=== PATIENT | female | born 1990 | race Two or more races ===

== ENCOUNTER 2018-04-08 20:27 | Emergency (ER) | payer OTHER ==
[2018-04-08 20:34] VITALS: BP 146/98; PULSE 78; TEMP 97.9; BMI 21.7
--- NOTE | 2018-04-08 20:51 | PDOC ---
History of Present Illness - General History Source: Patient Exam Limitations: No Limitations <Lara Rodriguez - Last Filed: 04/08/18 21:09> <Cindy Trejo - Last Filed: 04/09/18 01:57> - General Chief Complaint: Palpitations Stated Complaint: PALPITATIONS Time Seen by Provider: 04/08/18 20:30 - History of Present Illness Initial Comments: 04/08/18 20:56 The patient is 27 year old female with no significant past medical history presenting with headache, palpitations, visions changes, and left arm numbness today. Patient states she had a headache this morning, but states it felt like her typical headache that she gets whenever the weather changes. Patient reports taking medication and has since resolved her headache. Patient later noticed sudden onset palpitations followed by vision changes. She subsequently pulled over and also notes she was having left arm pain/numbness. She reports having similar left arm numbness last week, that resolved on its own after a couple of minutes. Denies history of sudden cardiac in her family. Denies history of stroke in her family. Patient denies any recent illnesses. The patient denies chest pain, shortness of breath, headache and dizziness. Denies fever, chills, nausea, vomit, diarrhea and constipation. Denies dysuria, frequency, urgency and hematuria. Allergies: NKA Past surgical history: None reported. Social history: No reported drug or alcohol use. Social smoker. (Lara Rodriguez) Past History <Lara Rodriguez - Last Filed: 04/08/18 21:09> - Past Medical History COPD: No - Immunization History Immunization Up to Date: Yes - Suicide/Smoking/Psychosocial Hx Smoking History: Never smoked <Cindy Trejo - Last Filed: 04/09/18 01:57> - Past Medical History Allergies/Adverse Reactions: Allergies Allergy/AdvReac Type Severity Reaction Status Date / Time No Known Allergies Allergy Unverified 04/08/18 20:28 Home Medications: Ambulatory Orders NK [No Known Home Medication] 04/08/18 Review of Systems - Review of Systems Able to Perform ROS?: Yes <Lara Rodriguez - Last Filed: 04/08/18 21:09> <Cindy Trejo - Last Filed: 04/09/18 01:57> - Review of Systems Comments:: 04/08/18 20:56 ADULT ROS GENERAL/CONSTITUTIONAL: No fever or chills. No weakness. HEAD, EYES, EARS, NOSE AND THROAT: (+) vision changes. No ear pain or discharge. No sore throat. CARDIOVASCULAR: No chest pain or shortness of breath. (+) palpitations. RESPIRATORY: No cough, wheezing, or hemoptysis. GASTROINTESTINAL: No nausea, vomiting, diarrhea or constipation. GENITOURINARY: No dysuria, frequency, or change in urination. MUSCULOSKELETAL: No joint or muscle swelling or pain. No neck or back pain. SKIN: No rash NEUROLOGIC: No vertigo or loss of consciousness. (+) Headache. (+) Left arm numbness. ENDOCRINE: No increased thirst. No abnormal weight change. HEMATOLOGIC/LYMPHATIC: No anemia, easy bleeding, or history of blood clots. ALLERGIC/IMMUNOLOGIC: No hives or skin allergy. (Lara Rodriguez) *Physical Exam <Lara Rodriguez - Last Filed: 04/08/18 21:09> <Cindy Trejo - Last Filed: 04/09/18 01:57> - Vital Signs Last Vital Signs Temp Pulse Resp BP Pulse Ox 97.9 F 78 18 146/98 100 04/08/18 20:29 04/08/18 20:29 04/08/18 20:29 04/08/18 20:29 04/08/18 20:29 - Physical Exam Comments: 04/08/18 21:09 ADULT EXAM GENERAL: Awake, alert, and fully oriented (+) Anxious appearing. EYES: PERRLA, EOMI, sclera anicteric, conjunctiva clear ENT: Auricles normal inspection, hearing grossly normal, nares patent, oropharynx clear without exudates. Moist mucosa NECK: Normal ROM, supple, no lymphadenopathy, JVD, or masses LUNGS: Breath sounds equal, clear to auscultation bilaterally. No wheezes, and no crackles HEART: (+) Tachycardic. Regular rhythm, normal S1 and S2, no murmurs, rubs or gallops CHEST WALL: (+) Left upper anterior chest wall is tender to palpation. No step- offs. No crepitus. ABDOMEN: Soft, nontender, normoactive bowel sounds. No guarding, no rebound. No masses EXTREMITIES: Normal range of motion, no edema. No clubbing or cyanosis. No cords, erythema, or tenderness. NEUROLOGICAL: Cranial nerves II through XII grossly intact. Normal speech, normal gait SKIN: Warm, Dry, normal turgor, no rashes or lesions noted. (Lara Rodriguez) - Procedure Monitoring Vital Signs: Procedure Monitoring Vital Signs Temperature 97.9 F 04/08/18 20:29 Pulse Rate 78 04/08/18 20:29 Respiratory Rate 18 04/08/18 20:29 Blood Pressure 146/98 04/08/18 20:29 O2 Sat by Pulse Oximetry (%) 100 04/08/18 20:29 ED Treatment Course - LABORATORY CBC & Chemistry Diagram: 04/08/18 21:50 04/08/18 21:50 <Cindy Trejo - Last Filed: 04/09/18 01:57> - ADDITIONAL ORDERS Additional order review: Laboratory Results 04/08/18 04/08/18 04/08/18 21:50 21:50 21:25 Sodium 139 Potassium 3.6 Chloride 108 H Carbon Dioxide 24 Anion Gap 7 L BUN 14 Creatinine 0.6 Creat Clearance w eGFR > 60 Random Glucose 105 Calcium 8.9 Total Bilirubin 0.7 AST 17 ALT 17 Alkaline Phosphatase 50 Creatine Kinase 68 Troponin I < 0.03 Total Protein 7.0 Albumin 4.3 Urine Color Yellow Urine Appearance Clear Urine pH 7.5 Ur Specific [place] 1.010 Urine Protein Negative Urine Glucose (UA) Negative Urine Ketones Negative Urine Blood Negative Urine Nitrite Negative Urine Bilirubin Negative Urine Urobilinogen 0.2 Ur Leukocyte Esterase Trace H Urine RBC 0-2 Urine WBC 2-5 Ur Epithelial Cells Few Urine HCG, Qual Negative 04/08/18 21:50 RBC 4.40 MCV 91.0 MCHC 34.7 RDW 11.2 L MPV 9.6 Neutrophils % 77.6 Lymphocytes % 17.4 Monocytes % 4.1 Eosinophils % 0.5 Basophils % 0.4 Medical Decision Making <Lara Rodriguez - Last Filed: 04/08/18 21:09> <Cindy Trejo - Last Filed: 04/09/18 01:57> - Medical Decision Making Documentation has been prepared under my direction and personally reviewed by me in its entirety. I attest that this documented accurately reflects all work, treatment, procedures and medical decision making performed by me. (Cindy Trejo) *DC/Admit/Observation/Transfer <Lara Rodriguez - Last Filed: 04/08/18 21:09> <Cindy Trejo - Last Filed: 04/09/18 01:57> Diagnosis at time of Disposition: Palpitations Chest wall muscle strain Qualifiers: Encounter type: initial encounter Qualified Code(s): S29.011A - Strain of muscle and tendon of front wall of thorax, initial encounter - Discharge Dispostion Disposition: HOME Condition at time of disposition: Stable - Referrals Referrals: Kyle Kurtz MD [Staff Physician] - - Patient Instructions Printed Discharge Instructions: DI for Palpitations Additional Instructions: avoid strenuous activity involving upper body for the next 2-3 days Acetaminophen/ibuprofen/naproxen as needed for pain Return to ER if you have persistent rapid heartbeat or chest pain Follow-up with neurologist () regarding left arm numbness within the next 5 days - Attestations Scribe Attestion: 04/08/18 20:57 Documentation prepared by Lara Rodriguez, acting as medical geneticist for Cindy Trejo MD. (Lara Rodriguez)
[2018-04-08 21:39] LABS: HCG,QUALITATIVE URINE Negative
[2018-04-08 21:54] LABS: PH,URINE 7.5 (4.5-8); URINE APPEARANCE Clear; URINE BILIRUBIN Negative (NEGATIVE); URINE COLOR Yellow; URINE GLUCOSE (UA) Negative (NEGATIVE); URINE KETONE Negative (NEGATIVE); URINE LEUK ESTERASE TRACE (NEGATIVE); URINE NITRITE Negative (NEGATIVE); URINE PROTEIN Negative (NEGATIVE); URINE UROBILINOGEN 0.2 (0.2-1.0)
[2018-04-08 22:12] LABS: BASO % 0.4 % (0-2.0); EOS % 0.5 % (0-4.5); HEMOGLOBIN 13.9 GM/dl (10.7-15.3); LYMPH % 17.4 % (8-40); MCH 31.6 pg (25.7-33.7); MCHC 34.7 g/dl (32.0-36.0); MEAN PLT VOLUME 9.6 fl (7.5-11.1); MONO % 4.1 % (3.8-10.2); NEUT % 77.6 % (42.8-82.8); PLATELET COUNT 244 K/MM3 (134-434); RDW 11.2 % (11.6-15.6); WHITE BLOOD COUNT 6.7 K/mm3 (4.0-10.8)
[2018-04-08 22:31] LABS: EPI CELLS FEW /HPF; URINE RBC 0-2 /hpf (0-3)
[2018-04-08 22:36] LABS: ALBUMIN 4.3 g/dl (3.5-5.0); ALK PHOS 50 U/L (32-92); ANION GAP 7 MMOL/L (8-16); BILIRUBIN,TOTAL 0.7 mg/dl (0.2-1.0); BLOOD UREA NITROGEN 14 mg/dl (7-18); CALCIUM 8.9 mg/dl (8.4-10.2); CHLORIDE 108 mmol/L (98-107); CO2 24 mmol/L (22-28); CREATININE 0.6 mg/dl (0.6-1.3); GLUCOSE,RANDOM 105 mg/dl (74-106); POTASSIUM 3.6 mmol/L (3.5-5.1); SGOT/AST 17 U/L (10-42); SGPT/ALT 17 U/L (10-40); SODIUM 139 mmol/L (136-145)
--- NOTE | 2018-04-09 11:28 | EKG ---
Test Reason : Blood Pressure : / mmHG Vent. Rate : 070 BPM Atrial Rate : 070 BPM P-R Int : 166 ms QRS Dur : 088 ms QT Int : 416 ms P-R-T Axes : 073 068 044 degrees QTc Int : 449 ms POOR DATA QUALITY, INTERPRETATION MAY BE ADVERSELY AFFECTED NORMAL SINUS RHYTHM POSSIBLE LEFT ATRIAL ENLARGEMENT BORDERLINE ECG NO PREVIOUS ECGS AVAILABLE Confirmed by CHRIS RIOJAS, SOSA ([id number]) on 04/09/2018 11:27:35 AM Referred By: Cindy Trejo Confirmed By:SOSA PEREZ MD
== END 2018-04-08 23:04 | disposition home or self-care (01) ==
LOC: FER 20:27
DX: S29.011A Strain of muscle and tendon of front wall of thorax, initial encounter (principal); R00.2 Palpitations; X58.XXXA Exposure to other specified factors, initial encounter; Y93.89 Activity, other specified; Y92.89 Other specified places as the place of occurrence of the external cause
CPT/HCPCS: 36415; 80053; 81003; 81015; 82550; 84484; 84703; 85025; 93005; 99283-25